=== PATIENT | female | born 1995 | race Caucasian/White ===

== ENCOUNTER 2020-09-11 20:24 | Emergency (ER) | payer OTHER ==
[~2020-09-11] VITALS: Ht 157.5 cm; Wt 60.0 kg
[2020-09-11] MEDS ORDERED: SODIUM CHLORIDE FLUSH 10ML SYR IVF ONE (21:00)
[2020-09-11] MEDS ORDERED: ONDANSETRON 2MG/ML, 2ML IVPush ONE (21:00)
[2020-09-11] MEDS: MORPHINE SULFATE 4 MG/ML, 1ML IVPush PRN ×2 (21:51→22:22)
[2020-09-11] MEDS ORDERED: ONDANSETRON 2MG/ML, 2ML ONE (21:55)
[2020-09-11] MEDS ORDERED: MORPHINE SULFATE 4 MG/ML, 1ML ONE ×2 (21:56→22:19)
--- NOTE | 2020-09-11 22:21 | NUR ---
PT CRYING IN PAIN, STATES PAIN BECAME WORSE ARE PAIN MEDICATION. 2ND DOSE MORPHINE GIVEN, PT TO GO FOR CT.
[2020-09-11 22:42] VITALS: BP 106/48
--- NOTE | 2020-09-11 23:08 | NUR ---
PT TO CT AT THIS TIME.
[2020-09-11] MEDS ORDERED: HYDROcodone/APAP 5/325 TABLET ONE (23:57)
[2020-09-12] MEDS ORDERED: HYDROcodone/APAP 5/325 TABLET PO ONE
== END 2020-09-12 00:35 | disposition home or self-care (01) ==
LOC: ED 22:08
DX: S92.902A Unspecified fracture of left foot, initial encounter for closed fracture (principal); W01.0XXA Fall on same level from slipping, tripping and stumbling without subsequent striking against object, initial encounter; Y93.89 Activity, other specified; Y92.009 Unspecified place in unspecified non-institutional (private) residence as the place of occurrence of the external cause; Y99.8 Other external cause status
CPT/HCPCS: 29515; 73610; 73630; 73700; 96374; 96375; 96376; 99284; J2270; J2405

== ENCOUNTER 2020-09-18 11:52 | Day surgery (SDC) | payer OTHER ==
[~2020-09-18] VITALS: Ht 157.5 cm; Wt 59.0 kg
[~2020-09-18 11:52] MED LIST: BUPIVACAINE/PF 0.25% ONE; BUPIVACAINE/PF 0.5% ONE; LIDOCAINE/PF 1%, 30ML ONE; OXYC1TAB14 PO
[2020-09-18 12:23] VITALS: BP 116/78
[2020-09-18] MEDS ORDERED: CHLORHEXIDINE 15 ML UDC ONE (12:29)
[2020-09-18] MEDS ORDERED: CHLORHEXIDINE 15 ML UDC PO ONE (12:30)
[2020-09-18] MEDS ORDERED: LACTATED RINGERS 1,000 ML IV SCH (12:30)
[2020-09-18 12:36] LABS: HCG UR SG 1.022 (1.003-1.030)
[2020-09-18] MEDS ORDERED: LIDOCAINE-MPF 1%, 2ML ONE (12:46)
[2020-09-18] MEDS ORDERED: MIDAZOLAM 1 MG/ML, 2ML ONE (12:50)
[2020-09-18] MEDS ORDERED: FENTANYL PF 100 MCG/2ML ONE ×4 (12:50→17:14)
[2020-09-18] MEDS ORDERED: ROPIvacaine/PF 0.5%, 30 ML ONE (12:52)
[2020-09-18] MEDS ORDERED: LIDOCAINE-MPF 2% ,5ML ONE (12:52)
[2020-09-18] MEDS ORDERED: EPINEPHRINE 1 MG/ML, 1ML ONE ×2 (12:52→13:49)
[2020-09-18] MEDS ORDERED: PROPOFOL 10 MG/ML, 20ML ONE (12:52)
[2020-09-18] MEDS ORDERED: LIDOCAINE-MPF 1%, 2ML INFIL ONE (13:00)
[2020-09-18] MEDS ORDERED: LIDOCAINE/PF 1%, 30ML ONE (13:49)
[2020-09-18] MEDS ORDERED: BUPIVACAINE/PF 0.5% ONE (13:49)
[2020-09-18] MEDS ORDERED: CEFAZOLIN 1,000 MG ONE (14:15)
[2020-09-18] MEDS ORDERED: DEXAMETHASONE 4 MG/ML, 1ML ONE (14:15)
[2020-09-18] MEDS ORDERED: ONDANSETRON 2MG/ML, 2ML ONE (16:20)
[2020-09-18] MEDS ORDERED: KETOROLAC 30 MG/1 ML ONE (16:21)
[2020-09-18] MEDS ORDERED: OXYcodone 5 MG/5 ML ORAL.SOL UDC ONE ×2 (16:59→17:17)
[2020-09-18] MEDS: FENTANYL PF 100 MCG/2ML IV PRN ×3 (17:03→17:14)
[2020-09-18] MEDS ORDERED: HYDROmorphone 1 MG/ML, 1ML INJ ONE (17:16)
[2020-09-18] MEDS ORDERED: MEPERIDINE/PF 25MG/0.5ML IVPush PRN (17:30)
[2020-09-18] MEDS ORDERED: DIPHENHYDRAMINE 50 MG/ML, 1ML IVPush PRN (17:30)
[2020-09-18] MEDS ORDERED: DIAZEPAM 5 MG/ML, 2ML IVPush PRN (17:30)
[2020-09-18] MEDS ORDERED: ACETAMINOPHEN 325 MG TABLET PO PRN (17:30)
[2020-09-18] MEDS ORDERED: ONDANSETRON 2MG/ML, 2ML IVPush PRN (17:30)
[2020-09-18] MEDS ORDERED: OXYcodone 5 MG/5 ML ORAL.SOL UDC PO PRN (17:30)
[2020-09-18] MEDS ORDERED: PROMETHAZINE 25 MG/ML, 1ML IVPush PRN (17:30)
[2020-09-18] MEDS: HYDROmorphone 1 MG/ML, 1ML INJ IVPush PRN ×2 (17:33→17:47)
== END 2020-09-18 19:50 | disposition home or self-care (01) ==
LOC: OUT 11:52 → EDSTATUS 14:00 → OUT 19:50
PROVIDERS: ATTEND Orthopaedic Surgery
DX: S92.312A Displaced fracture of first metatarsal bone, left foot, initial encounter for closed fracture (principal); S92.322A Displaced fracture of second metatarsal bone, left foot, initial encounter for closed fracture; S92.332A Displaced fracture of third metatarsal bone, left foot, initial encounter for closed fracture; S92.342A Displaced fracture of fourth metatarsal bone, left foot, initial encounter for closed fracture; S92.352A Displaced fracture of fifth metatarsal bone, left foot, initial encounter for closed fracture; Z20.822 Contact with and (suspected) exposure to COVID-19; Z79.899 Other long term (current) drug therapy; X58.XXXA Exposure to other specified factors, initial encounter; Y93.89 Activity, other specified; Y92.89 Other specified places as the place of occurrence of the external cause; Y99.8 Other external cause status
CPT/HCPCS: 20900; 28605; 28615; 28730; 64415; 73630; 81025; C1713; J0690; J1100; J1170; J1885; J2250; J2405; J2704; J2795; J3010; U0003; U0005; 76000; J0171